=== PATIENT | male | born 1970 | race Two or more races ===

== ENCOUNTER 2025-04-01 03:44 | Emergency (ER) | payer MEDICAID, SELFPAY ==
[2025-04-01 03:44] VITALS: BMI 27.7
[2025-04-01 03:52] VITALS: BP 163/81; PULSE 85; RESP 18; TEMP 36.9; O2SAT 97
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
--- NOTE | 2025-04-01 05:35 | PRELIM_ITS ---
CT scan of the cervical spine without intravenous contrast (axial sections with sagittal and coronal reformats) April 01, 2025 0511 hours Clinical History: Fall w/ LOC Comparison: None available at the time of this report. Findings: There is no fracture or subluxation. The prevertebral soft tissues are unremarkable. Loss of the physiologic cervical lordosis. 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 Impression: No evidence of fracture or subluxation. Report Electronically Signed By: Milton Peterson 04/01/2025 5:35:18 AM [EST]
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
== END 2025-04-01 05:43 | disposition home or self-care (01) ==
PROVIDERS: Emergency Provider Emergency Medicine
DX: Z53.21 Procedure and treatment not carried out due to patient leaving prior to being seen by health care provider (principal)
CPT/HCPCS: 70450; 70486; 72125; 99284